=== PATIENT | male | born 1970 | race Caucasian/White ===

== ENCOUNTER 2019-10-15 18:13 | Emergency (ER) | payer BC, SELFPAY ==
[2019-10-15 18:20] VITALS: BP 176/93; PULSE 76; RESP 16; TEMP 36.3; O2SAT 99; BMI 24.3
--- NOTE | 2019-10-15 19:06 | DI.CT.S_ITS ---
PROCEDURE: CT HEAD/BRAIN WO CON INDICATIONS: Sudden onset of head TECHNIQUE: Noncontrast 4.5 mm thick angled axial sections acquired from the foramen magnum to the vertex, with coronal and sagittal reformats. For radiation dose reduction, the following was used: automated exposure control, adjustment of mA and/or kV according to patient size. COMPARISON: None. FINDINGS: Image quality: Excellent. CSF spaces: Basal cisterns are patent. No extra-axial fluid collections. Ventricles are normal in size and shape. Brain: No midline shift. No intracranial masses. Diffuse acute subarachnoid hemorrhage is noted in the bilateral temporal lobes/temporal fossa extending to the interpeduncular cistern. Subarachnoid hemorrhage is also noted in the inferior aspect of the frontal lobes bilaterally. Lu-white matter interface is normal. Skull and face: Calvarium and visualized facial bones are intact, without suspicious lesions. Sinuses: Visualized sinuses and mastoids are clear. IMPRESSION: Acute subarachnoid hemorrhage involving the bilateral temporal lobes and temporal lobe fossa extending to the interpeduncular and suprasellar cisterns. There is also acute subarachnoid hemorrhage noted in the inferior aspect of the frontal lobes. No evidence for mass or mass effect. No midline shift of structures. Findings were discussed with FABIOLA Wadsworth at 1950 hrs. Dictated by: Bhupendra Mendez M.D. on 10/15/2019 at 19:41 Approved by: Bhupendra Mendez M.D. on 10/15/2019 at 19:50
--- NOTE | 2019-10-15 19:10 | ED.HA ---
HPI - Headache <FABIOLA Wadsworth - Last Filed: 10/15/19 21:38> General Chief Complaint: Headache Stated Complaint: FEVER NAUSEA Time Seen by Provider: 10/15/19 18:44 History of Present Illness HPI Narrative: 48yo male presents to the emergency department today for a sudden onset frontal headache that occurred at 5:00 p.m. today while bending over while talking about.. Patient denies any history of headaches or migraines. Patient denies any light sensitivity, chest pain, shortness of breath, neck pain, fevers, cough, sinus pain, nausea, vomiting, diarrhea, or any other concerns. Patient denies any major medical issues or major surgeries. Patient states he does not smoke, drinks a few beers a day. Related Data Allergies Allergy/AdvReac Type Severity Reaction Status Date / Time Tetanus Vaccines and Toxoid Allergy Verified 10/15/19 18:25 Review of Systems <FABIOLA Wadsworth - Last Filed: 10/15/19 21:38> Review of Systems Narrative: REVIEW OF SYSTEMS: GENERAL: Denies fever or chills. HENT: Complains of sudden-onset headache, see HPI. EYES: No loss of vision, double vision, eye pain, or irritation. CARDIOVASCULAR: No chest pain or syncope. RESPIRATORY: No shortness of breath or cough. GASTROINTESTINAL: No nausea, vomiting, diarrhea, or constipation. GENITOURINARY: No flank pain or dysuria. MUSCULOSKELETAL: No pain, weakness, or deformities. INTEGUMENTARY: No rash, lesions, or pruritus. NEURO: No and this or tingling. PSYCH: No behavior or mood changes. Patient History <FABIOLA Wadsworth - Last Filed: 10/15/19 21:38> Social History Smoking Status: Never smoker Smoking Status: Never smoker alcohol intake frequency: 0-2 drinks per day Substance Use Type: does not use Exam <FABIOLA Wadsworth - Last Filed: 10/15/19 21:38> Initial Vital Signs Initial Vital Signs: Vital Signs Temperature 97.4 F L 10/15/19 18:20 Pulse Rate 76 10/15/19 18:20 Respiratory Rate 16 10/15/19 18:20 Blood Pressure 176/93 H 10/15/19 18:20 Pulse Oximetry 99 06/26/20 18:20 PHYSICAL EXAMINATION: GENERAL: Well groomed. Alert, appears to be in pain. Answers questions promptly and appropriately. Vital signs noted. HENT: Normocephalic. Ear canals patent. Oral mucosa is pink and moist. EYES: PERRLA, EOMIs, conjunctiva pink, sclera white, no periorbital swelling. NECK: Full ROM, no midline or spinal tenderness. CARDIOVASCULAR: S1 and S2 sounds normal. Regular rate and rhythm, no murmurs, clicks, or bruits. RESPIRATORY: Normal respiratory rate, trachea midline, airway patent. No stridor, nasal flaring or accessory muscle use. Lungs are clear in all aquino without wheeze, rhonchi, or crackles. MUSCULOSKELETAL: Normal gait and coordination. Equal tone and mass bilaterally. Equal strength bilaterally to upper and lower extremities. No spinal tenderness. EXTREMITIES: CMS intact. Moves all extremities. SKIN: Warm, dry, soft, appropriate color for ethnicity. No lesions, rashes, or wounds to visualized areas. NEURO: Alert and Oriented X 3. GCS: 15. Good coordination. No ataxia, or sensory deficits, or cognitive issues. Cranial Nerves: II: Visual aquino grossly intact. III & IV & : EOMIs V: Able to open and close jaw. VII: Facial movements symetrical. Able to close eyelids tightly. VIII: Hearing grossly intact, adequate balance. X: Uvula pronation intact. XI: Patient is able to shrug shoulders. XII: Patient is able to stick out tongue and move it side to side. PSYCH: Appropriate affect and mood. <Víctor Lorenzo DO - Last Filed: 10/15/19 22:06> Initial Vital Signs Initial Vital Signs: Vital Signs Temperature 97.4 F L 10/15/19 18:20 Pulse Rate 76 10/15/19 18:20 Respiratory Rate 16 10/15/19 18:20 Blood Pressure 176/93 H 10/15/19 18:20 Pulse Oximetry 99 10/15/19 18:20 Course <FABIOLA Wadsworth - Last Filed: 10/15/19 21:38> Course Course Narrative: 2015: Patient updated on findings and transfer, consents to transfer. Nursing states they will notified patient's . 2001: [facility] contacted. 2031: Spoke with Dr. Roca from [facility] who accepts patient. Discussed test, test results, and plan of care including vitals and medications. Orders Ordered: ED Orders 10/15/19 19:06 CT head/brain wo con Stat 10/15/19 19:55 Complete Blood Count AUTO DIFF Stat Comprehensive Metabolic Panel Stat Partial Thromboplastin Time Stat Prothrombin Time INR Stat Discontinued Medications Diphenhydramine HCl (Benadryl) 25 mg IV NOW ONE Stop: 10/15/19 19:07 Last Admin: 10/15/19 19:50 Dose: Not Given Documented by: MOI Hydromorphone HCl (Dilaudid) 0.5 mg IV NOW ONE Stop: 10/15/19 19:54 Last Admin: 10/15/19 19:59 Dose: 0.5 mg Documented by: ERNESTO Sodium Chloride (Normal Saline 0.9%) 1,000 mls @ 1,000 mls/hr IV BOLUS ONE Stop: 10/15/19 20:05 Last Admin: 10/15/19 21:09 Dose: Not Given Documented by: MOI Nicardipine HCl 25 mg/ Sodium (Chloride) 250 mls @ 50 mls/hr IV TITRATE GRAHAM; Protocol Last Titration: 10/15/19 21:12 Dose: 0 mg/hr, 0 mls/hr Documented by: Titration: 10/15/19 21:12 Dose: 5 mg/hr, 50 mls/hr Documented by: Admin: 10/15/19 20:03 Dose: 5 mg/hr, 50 mls/hr Documented by: ERNESTO Ketorolac Tromethamine (Toradol) 30 mg IV NOW ONE Stop: 10/15/19 19:07 Last Admin: 10/15/19 19:49 Dose: Not Given Documented by: MOI Metoclopramide HCl (Reglan) 10 mg IV NOW ONE Stop: 10/15/19 19:07 Last Admin: 10/15/19 19:49 Dose: Not Given Documented by: MOI Ondansetron HCl (Zofran) 4 mg IV NOW ONE Stop: 10/15/19 20:10 Last Admin: 10/15/19 20:10 Dose: 4 mg Documented by: ERNESTO Consultations Consultation #1: Patient staffed with Dr. Lorenzo discussed symptoms, test, test results, plan of care. Vital Signs Vital signs: Vital Signs - 8 hr 10/15/19 18:20 10/15/19 20:10 10/15/19 20:15 Temperature 97.4 F L Pulse Rate 76 91 H 92 H Respiratory Rate 16 17 23 Blood Pressure 176/93 H Blood Pressure [Left Arm] 151/93 H 162/74 H Pulse Oximetry 99 100 100 10/15/19 20:30 10/15/19 20:45 Temperature Pulse Rate 96 H 91 H Respiratory Rate 22 18 Blood Pressure Blood Pressure [Left Arm] 127/82 139/87 Pulse Oximetry 100 100 <Víctor Lorenzo DO - Last Filed: 10/15/19 22:06> Orders Ordered: ED Orders 10/15/19 19:06 CT head/brain wo con Stat 10/15/19 19:55 Complete Blood Count AUTO DIFF Stat Comprehensive Metabolic Panel Stat Partial Thromboplastin Time Stat Prothrombin Time INR Stat Discontinued Medications Diphenhydramine HCl (Benadryl) 25 mg IV NOW ONE Stop: 10/15/19 19:07 Last Admin: 10/15/19 19:50 Dose: Not Given Documented by: MOI Hydromorphone HCl (Dilaudid) 0.5 mg IV NOW ONE Stop: 10/15/19 19:54 Last Admin: 10/15/19 19:59 Dose: 0.5 mg Documented by: ERNESTO Sodium Chloride (Normal Saline 0.9%) 1,000 mls @ 1,000 mls/hr IV BOLUS ONE Stop: 10/15/19 20:05 Last Admin: 10/15/19 21:09 Dose: Not Given Documented by: MOI Nicardipine HCl 25 mg/ Sodium (Chloride) 250 mls @ 50 mls/hr IV TITRATE GRAHAM; Protocol Last Titration: 10/15/19 21:12 Dose: 0 mg/hr, 0 mls/hr Documented by: Titration: 10/15/19 21:12 Dose: 5 mg/hr, 50 mls/hr Documented by: Admin: 10/15/19 20:03 Dose: 5 mg/hr, 50 mls/hr Documented by: ERNESTO Ketorolac Tromethamine (Toradol) 30 mg IV NOW ONE Stop: 06/26/20 19:07 Last Admin: 10/15/19 19:49 Dose: Not Given Documented by: MOI Metoclopramide HCl (Reglan) 10 mg IV NOW ONE Stop: 10/15/19 19:07 Last Admin: 10/15/19 19:49 Dose: Not Given Documented by: MOI Ondansetron HCl (Zofran) 4 mg IV NOW ONE Stop: 10/15/19 20:10 Last Admin: 10/15/19 20:10 Dose: 4 mg Documented by: ERNESTO Vital Signs Vital signs: Vital Signs - 8 hr 10/15/19 18:20 10/15/19 20:10 10/15/19 20:15 Temperature 97.4 F L Pulse Rate 76 91 H 92 H Respiratory Rate 16 17 23 Blood Pressure 176/93 H Blood Pressure [Left Arm] 151/93 H 162/74 H Pulse Oximetry 99 100 100 10/15/19 20:30 10/15/19 20:45 Temperature Pulse Rate 96 H 91 H Respiratory Rate 22 18 Blood Pressure Blood Pressure [Left Arm] 127/82 139/87 Pulse Oximetry 100 100 MDM - Headache <FABIOLA Wadsworth - Last Filed: 10/15/19 21:38> Medical Records Attestation: I reviewed the patient's medical records. Lab Data Attestation: I reviewed the patient's lab results. Result diagrams: 10/15/19 19:55 10/15/19 19:55 Labs: Lab Results 10/15/19 10/15/19 10/15/19 Range/Units 19:55 19:55 19:55 WBC 16.1 H (4.5-11.0) X10^3/uL RBC 4.94 (4.5-5.9) X10^6/uL Hgb 15.6 (13.5-17.5) g/dL Hct 45.5 (41-53) % MCV 92.3 (80-100) fL MCH 31.6 (26-34) PG MCHC 34.3 (30-36) % RDW 12.8 (11.6-14.8) % Plt Count 261 (150-400) X10^3/uL Neut % (Auto) 80.1 H (50-75) % Lymph % (Auto) 11.9 L (25-40) % [place] % (Auto) 6.9 (3-14) % Eos % (Auto) 0.6 L (2-4) % Baso % (Auto) 0.5 (0-2) % Neut # (Auto) 48843 H (7165-1104) /uL Lymph # (Auto) 1900 (4589-1589) /uL [place] # (Auto) 1100 H (0-900) /uL Eos # (Auto) 100 (0-450) /uL Baso # (Auto) 100 (0-100) /uL PT 11.5 (10.1-12.7) SECONDS INR 1.0 (0.9-1.3) APTT 32 (26.4-36.2) SECONDS Sodium 137 (137-145) mmol/L Potassium 3.5 (3.4-5.1) mmol/L Chloride 101 (98-107) mmol/L Carbon Dioxide 23 (22-32) mmol/L BUN 24 H (9-20) mg/dL Creatinine 1.08 (0.66-1.25) mg/dL Estimated GFR > 60.0 (>60) mL/min BUN/Creatinine Ratio 22.2 H (6-22) Glucose 108 H (70-100) mg/dL Calcium 10.3 H (8.4-10.2) mg/dL Total Bilirubin 1.3 (0.2-1.3) mg/dL AST 43 (17-59) IU/L ALT 30 (<50) IU/L Alkaline Phosphatase 88 (38-126) U/L Total Protein 8.4 H (6.3-8.2) g/dL Albumin 5.0 (3.5-5.0) g/dL Globulin 3.4 (1.7-4.1) g/dL Albumin/Globulin Ratio 1.5 (1.0-2.8) Imaging Data CT scan - head: Radiologist's Impression: [address] [address] [address] Scan Report Signed Patient: Zev Matias DMR#: [id number] : 1970Acct:[id number] Age/Sex: 48 / MDate of Service: 10/15/19 Loc: ED Accession Number: [id number] Procedure: CT head/brain wo con Ordering Provider: Neetu Mcfarlane PROCEDURE: CT HEAD/BRAIN WO CON INDICATIONS: Sudden onset of head TECHNIQUE: Noncontrast 4.5 mm thick angled axial sections acquired from the foramen magnum to the vertex, with coronal and sagittal reformats. For radiation dose reduction, the following was used: automated exposure control, adjustment of mA and/or kV according to patient size. COMPARISON: None. FINDINGS: Image quality: Excellent. CSF spaces: Basal cisterns are patent. No extra-axial fluid collections. Ventricles are normal in size and shape. Brain: No midline shift. No intracranial masses. Diffuse acute subarachnoid hemorrhage is noted in the bilateral temporal lobes/temporal fossa extending to the interpeduncular cistern. Subarachnoid hemorrhage is also noted in the inferior aspect of the frontal lobes bilaterally. Lu-white matter interface is normal. Skull and face: Calvarium and visualized facial bones are intact, without suspicious lesions. Sinuses: Visualized sinuses and mastoids are clear. IMPRESSION: Acute subarachnoid hemorrhage involving the bilateral temporal lobes and temporal lobe fossa extending to the interpeduncular and suprasellar cisterns. There is also acute subarachnoid hemorrhage noted in the inferior aspect of the frontal lobes. No evidence for mass or mass effect. No midline shift of structures. Findings were discussed with FABIOLA Wadsworth at 1950 hrs. Dictated by: Bhupendra Mendez M.D. on 10/15/2019 at 19:41 Approved by: Bhupendra Mendez M.D. on 10/15/2019 at 19:50 MDM Narrative Medical decision making narrative: 48-year-old male with a sudden onset severe headache. CT head shows acute subarachnoid hemorrhage, transport initiated immediately. Patient hemodynamically stable, nonfocal, alert and oriented. Patient transferred to [facility] after consent. <Víctor Lorenzo DO - Last Filed: 10/15/19 22:06> Lab Data Labs: Lab Results 10/15/19 10/15/19 10/15/19 Range/Units 19:55 19:55 19:55 WBC 16.1 H (4.5-11.0) X10^3/uL RBC 4.94 (4.5-5.9) X10^6/uL Hgb 15.6 (13.5-17.5) g/dL Hct 45.5 (41-53) % MCV 92.3 (80-100) fL MCH 31.6 (26-34) PG MCHC 34.3 (30-36) % RDW 12.8 (11.6-14.8) % Plt Count 261 (150-400) X10^3/uL Neut % (Auto) 80.1 H (50-75) % Lymph % (Auto) 11.9 L (25-40) % [place] % (Auto) 6.9 (3-14) % Eos % (Auto) 0.6 L (2-4) % Baso % (Auto) 0.5 (0-2) % Neut # (Auto) 25962 H (9505-6901) /uL Lymph # (Auto) 1900 (3525-1518) /uL [place] # (Auto) 1100 H (0-900) /uL Eos # (Auto) 100 (0-450) /uL Baso # (Auto) 100 (0-100) /uL PT 11.5 (10.1-12.7) SECONDS INR 1.0 (0.9-1.3) APTT 32 (26.4-36.2) SECONDS Sodium 137 (137-145) mmol/L Potassium 3.5 (3.4-5.1) mmol/L Chloride 101 (98-107) mmol/L Carbon Dioxide 23 (22-32) mmol/L BUN 24 H (9-20) mg/dL Creatinine 1.08 (0.66-1.25) mg/dL Estimated GFR > 60.0 (>60) mL/min BUN/Creatinine Ratio 22.2 H (6-22) Glucose 108 H (70-100) mg/dL Calcium 10.3 H (8.4-10.2) mg/dL Total Bilirubin 1.3 (0.2-1.3) mg/dL AST 43 (17-59) IU/L ALT 30 (<50) IU/L Alkaline Phosphatase 88 (38-126) U/L Total Protein 8.4 H (6.3-8.2) g/dL Albumin 5.0 (3.5-5.0) g/dL Globulin 3.4 (1.7-4.1) g/dL Albumin/Globulin Ratio 1.5 (1.0-2.8) Discharge Plan Departure Patient Disposition: [facility] Clinical Impression: Subarachnoid hemorrhage Discharge Date/Time: 10/15/19 21:16 <Víctor Lanker, DO - Last Filed: 10/15/19 22:06> Cosign ED Attending Cosignature Attestation: Dr Lorenzo Co-Sign Statement: I was available for consultation during this patient's emergency department visit. This chart is signed by myself for administrative purposes only. I did not have direct contact with this patient during this visit. They were seen independently by the APC.
[2019-10-15] MEDS: SODIUM CHLORIDE 0.9% 1,000 ML 1000 ML IV (19:50)
[2019-10-15] MEDS: HYDROMORPHONE 0.5 MG INJ IV (19:59)
[2019-10-15] MEDS: NICARDIPINE 25 MG in SODIUM CHLORIDE 0.9% 240 ML 50 ML IV (20:03)
[2019-10-15 20:10] VITALS: BP 151/93; PULSE 91; RESP 17; O2SAT 100
[2019-10-15] MEDS: ONDANSETRON 4 MG/2 ML INJ IV (20:10)
[2019-10-15 20:15] VITALS: BP 162/74; PULSE 92; RESP 23; O2SAT 100
[2019-10-15 20:16] LABS: Add Manual Diff / Slide Review NO; Basophils Absolute Auto 100 /uL (0-100); Basophils Percent Auto 0.5 % (0-2); Eosinophils Absolute Auto 100 /uL (0-450); Eosinophils Percent Auto 0.6 % (2-4); Hematocrit 45.5 % (41-53); Hemoglobin 15.6 g/dL (13.5-17.5); Lymphocytes Absolute Auto 1900 /uL (1100-4500); Lymphocytes Percent Auto 11.9 % (25-40); Mean Corpuscular HGB Conc 34.3 % (30-36); Mean Corpuscular Hemoglobin 31.6 PG (26-34); Mean Corpuscular Volume 92.3 fL (80-100); Monocytes Absolute Auto 1100 /uL (0-900); Monocytes Percent Auto 6.9 % (3-14); Neutrophils Absolute Auto 12900 /uL (1500-7000); Neutrophils Percent Auto 80.1 % (50-75); Platelet Count 261 X10^3/uL (150-400); Red Blood Cell Count 4.94 X10^6/uL (4.5-5.9); Red Cell Distribution Width 12.8 % (11.6-14.8); White Blood Cell Count 16.1 X10^3/uL (4.5-11.0)
--- NOTE | 2019-10-15 20:18 | PC.NURSE ---
I called the patient's per his request on speaker phone at this time and informed her of what was going and his transfer to [facility] via helicopter. She verbalizes understanding.
[2019-10-15 20:23] LABS: Prothrombin Time 11.5 SECONDS (10.1-12.7)
[2019-10-15 20:26] LABS: PTT Partial Thromboplastin Tim 32 SECONDS (26.4-36.2)
[2019-10-15 20:27] LABS: Alanine Aminotransferase 30 IU/L (<50); Albumin Globulin Ratio 1.5 (1.0-2.8); Alkaline Phosphatase 88 U/L (38-126); Aspartate Aminotransferase 43 IU/L (17-59); BUN Creatinine Ratio 22.2 (6-22); Bilirubin Total 1.3 mg/dL (0.2-1.3); Blood Urea Nitrogen 24 mg/dL (9-20); Calcium 10.3 mg/dL (8.4-10.2); Carbon Dioxide 23 mmol/L (22-32); Chloride 101 mmol/L (98-107); Estimated Glomerular Filt Rate > 60.0 mL/min (>60); Globulin 3.4 g/dL (1.7-4.1); Glucose 108 mg/dL (70-100); HEMOLYSIS 20 (0-50); Potassium 3.5 mmol/L (3.4-5.1); Sodium 137 mmol/L (137-145); Total Protein 8.4 g/dL (6.3-8.2)
[2019-10-15 20:30] VITALS: BP 127/82; PULSE 96; RESP 22; O2SAT 100
--- NOTE | 2019-10-15 20:42 | PC.NURSE ---
and kids are at bedside with patient.
[2019-10-15 20:45] VITALS: BP 139/87; PULSE 91; PULSE 98; RESP 18; RESP 20; O2SAT 100
--- NOTE | 2019-10-15 21:14 | PC.NURSE ---
Nicardipine drip continued in transport via helicopter.
== END 2019-10-15 21:16 | disposition short-term general hospital (02) ==
PROVIDERS: Emergency Provider Nurse Practitioner
DX: I60.9 Nontraumatic subarachnoid hemorrhage, unspecified (principal)
CPT/HCPCS: 36415; 70450; 80053; 85025; 85610; 85730; 96365; 96375; 99285; 99291; 99292; J1170; J2405